=== PATIENT | female | born 1990 | race Caucasian/White ===

== ENCOUNTER 2018-09-30 03:12 | Emergency (ER) | payer OTHER ==
[~2018-09-30] VITALS: Ht 162.6 cm; Wt 90.7 kg
[~2018-09-30 03:12] MED LIST: DICL75EC11 PO
[2018-09-30 03:17] VITALS: BP 133/83
[2018-09-30 03:45] VITALS: BP 127/77
== END 2018-09-30 03:45 ==
LOC: MED 03:12
DX: Z04.1 Encounter for examination and observation following transport accident (principal); Z79.1 Long term (current) use of non-steroidal anti-inflammatories (NSAID); V49.59XA Passenger injured in collision with other motor vehicles in traffic accident, initial encounter; Y93.I9 Activity, other involving external motion; Y92.488 Other paved roadways as the place of occurrence of the external cause; Y99.8 Other external cause status
CPT/HCPCS: 99283

== ENCOUNTER 2019-02-14 09:58 | Emergency (ER) | payer OTHER ==
[~2019-02-14] VITALS: Ht 162.6 cm; Wt 83.5 kg
[2019-02-14 10:14] VITALS: BP 126/79
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
--- NOTE | 2019-02-14 11:45 | NUR ---
PT TAKEN TO CT VIA WHEEL CHAIR BY STAPLING MACHINE OPERATOR.
--- NOTE | 2019-02-14 12:08 | NUR ---
PT TAKEN BACK FROM CT VIA WHEEL CHAIR BY SUPERVISOR PRODUCTION DEPARTMENT
--- NOTE | 2019-02-14 12:57 | NUR ---
DR AVILEZ AT BEDSIDE FOR PT EVALUATION
[2019-02-14] MEDS ORDERED: KETOROLAC 60 MG/2 ML VIAL IM ONE (13:05)
[2019-02-14 13:47] VITALS: BP 122/74
--- NOTE | 2019-02-14 13:47 | NUR ---
Patient discharged with v/s stable. Written and verbal after care instructions given and explained. Patient alert, oriented and verbalized understanding of instructions. Ambulatory with steady gait. All questions addressed prior to discharge. ID band removed. Patient advised to follow up with PMD. Rx of Cipro, Motrin given. Patient educated on indication of medication including possible reaction and side effects. Opportunity to ask questions provided and answered.
== END 2019-02-14 13:47 | disposition home or self-care (01) ==
LOC: MED 09:58
DX: S00.12XA Contusion of left eyelid and periocular area, initial encounter (principal); N39.0 Urinary tract infection, site not specified; Z79.1 Long term (current) use of non-steroidal anti-inflammatories (NSAID); Y04.0XXA Assault by unarmed brawl or fight, initial encounter; Y93.89 Activity, other specified; Y92.89 Other specified places as the place of occurrence of the external cause; Y99.8 Other external cause status
CPT/HCPCS: 70450; 70486; 81002; 81025; 96372; 99284; J1885

== ENCOUNTER 2021-11-18 12:45 | Emergency (ER) | payer MEDICAID, OTHER ==
[~2021-11-18] VITALS: Ht 162.6 cm; Wt 95.3 kg
[2021-11-18 12:56] VITALS: BP 134/80
--- NOTE | 2021-11-18 13:04 | NUR ---
PT AMBULATED TO ER BED 3 WITH A STEADY GAIT.
--- NOTE | 2021-11-18 13:24 | NUR ---
PA WAN EXAMINING PT
[2021-11-18] MEDS ORDERED: diphenhydrAMINE 50 MG/ML VIAL IVP ONE (13:30)
[2021-11-18] MEDS ORDERED: PROCHLORPERAZINE 10 MG/2 ML VIAL IVP ONE (13:30)
[2021-11-18] MEDS ORDERED: NACL 0.9% 1,000 ML IV ONE (13:30)
--- NOTE | 2021-11-18 13:36 | NUR ---
PT TAKEN TO CT VIA W/C.
--- NOTE | 2021-11-18 13:51 | NUR ---
PT TAKEN TO ER BED 3 VIA W/C.
[2021-11-18] MEDS ORDERED: KETOROLAC 15 MG/ML VIAL IVP ONE (14:00)
--- NOTE | 2021-11-18 14:02 | NUR ---
18G IV ESTABLISHED IN L AC
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
[2021-11-18] MEDS ORDERED: IBUP-2213 PO (15:08)
[2021-11-18 15:25] VITALS: BP 134/80
== END 2021-11-18 15:25 | disposition home or self-care (01) ==
LOC: MED 12:45
DX: R03.0 Elevated blood-pressure reading, without diagnosis of hypertension (principal); R51.9 Headache, unspecified; R11.0 Nausea; R42 Dizziness and giddiness
CPT/HCPCS: 70450; 81025; 96361; 96374; 96375; 99284; J0780; J1200; J1885; J7030